=== PATIENT | female | born 1985 | race Caucasian/White ===

== ENCOUNTER 2021-07-09 21:43 | Emergency (ER) | payer OTHER, MEDICAID ==
[~2021-07-09] VITALS: Ht 157.5 cm; Wt 70.3 kg
[2021-07-09 22:13] VITALS: BP_SYST 116
--- NOTE | 2021-07-09 23:38 | NUR ---
Patient ambulatory to bed hallway 1
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
--- NOTE | 2021-07-10 00:04 | NUR ---
ER Dr. Mosquera at bedside examining patient.
[2021-07-10] MEDS ORDERED: IBUPROFEN 800 MG TABLET PO ONE (00:15)
--- NOTE | 2021-07-10 00:52 | NUR ---
Returned from radiology, back to [facility].
[2021-07-10 02:22] VITALS: BP_SYST 116
--- NOTE | 2021-07-10 02:22 | NUR ---
Patient given written and verbal discharge instructions and verbalizes understanding. ER MD discussed with patient the results and treatment provided. Patient in stable condition. ID arm band removed. Rx of flexeril, Ibuprofen and [place] given. Patient educated on pain management and to follow up with PMD. Pain Scale 2/10. Opportunity for questions provided and answered. Medication side effect fact sheet provided.
== END 2021-07-10 02:22 | disposition home or self-care (01) ==
LOC: SED 21:43
DX: S16.1XXA Strain of muscle, fascia and tendon at neck level, initial encounter (principal); S29.012A Strain of muscle and tendon of back wall of thorax, initial encounter; V49.49XA Driver injured in collision with other motor vehicles in traffic accident, initial encounter; Y93.89 Activity, other specified; Y92.89 Other specified places as the place of occurrence of the external cause; Y99.8 Other external cause status
CPT/HCPCS: 72125-TC; 72128; 76376; 99284